=== PATIENT | male | born 1955 | race Caucasian/White ===

== ENCOUNTER → 2023-08-22 13:30 | Outpatient (BNVA) | payer MEDICARE, SELFPAY | PROVIDERS: Visit Provider Nurse Practitioner | DX: M54.2 Cervicalgia (principal); R42 Dizziness and giddiness; E11.9 Type 2 diabetes mellitus without complications; I10 Essential (primary) hypertension; E78.5 Hyperlipidemia, unspecified; Z86.73 Personal history of transient ischemic attack (TIA), and cerebral infarction without residual deficits; Z76.89 Persons encountering health services in other specified circumstances | CPT/HCPCS: 80053; 83036 ==

== ENCOUNTER 2023-09-04 06:00 | Outpatient (RCR) | payer MEDICARE, SELFPAY | END 2023-09-06 23:59 | disposition home or self-care (01) | LOC: MPT 06:00 | PROVIDERS: PCP Nurse Practitioner; Visit Provider Nurse Practitioner | DX: M54.2 Cervicalgia (principal) | CPT/HCPCS: 97110; 97140; 97162 ==

== ENCOUNTER 2023-09-07 06:00 | Outpatient (RCR) | payer MEDICARE, SELFPAY | END 2023-10-07 23:59 | disposition home or self-care (01) | LOC: MPT 06:00 | PROVIDERS: PCP Nurse Practitioner; Visit Provider Nurse Practitioner | DX: M54.2 Cervicalgia (principal) | CPT/HCPCS: 97032; 97110; 97140; G0283 ==

== ENCOUNTER 2023-10-08 06:00 | Outpatient (RCR) | payer MEDICARE, SELFPAY | END 2023-10-26 23:59 | disposition home or self-care (01) | LOC: MPT 06:00 | PROVIDERS: PCP Nurse Practitioner; Visit Provider Nurse Practitioner | DX: M54.2 Cervicalgia (principal) | CPT/HCPCS: 97110; 97140; G0283 ==

== ENCOUNTER → 2024-05-21 14:26 | Outpatient (BNVA) | payer MEDICARE, SELFPAY | PROVIDERS: PCP Nurse Practitioner; Visit Provider Nurse Practitioner | DX: E11.9 Type 2 diabetes mellitus without complications (principal); I10 Essential (primary) hypertension; E78.5 Hyperlipidemia, unspecified | CPT/HCPCS: 80053; 80061; 83036; 85025 ==

== ENCOUNTER → 2024-08-20 14:18 | Outpatient (BNVA) | payer MEDICARE, SELFPAY | PROVIDERS: PCP Nurse Practitioner; Visit Provider Nurse Practitioner | DX: E78.5 Hyperlipidemia, unspecified (principal); E11.9 Type 2 diabetes mellitus without complications | CPT/HCPCS: 80061; 83036 ==

== ENCOUNTER 2024-09-06 05:00 | Outpatient (RCR) | payer MEDICARE, SELFPAY | END 2024-10-06 23:59 | disposition home or self-care (01) | LOC: MPT 05:00 | PROVIDERS: Visit Provider Nurse Practitioner | DX: M54.2 Cervicalgia (principal) | CPT/HCPCS: 97110; 97162 ==

== ENCOUNTER 2024-10-07 06:30 | Outpatient (RCR) | payer MEDICARE, SELFPAY | END 2024-11-05 23:59 | disposition home or self-care (01) | LOC: MPT 06:30 | PROVIDERS: Visit Provider Nurse Practitioner | DX: M54.2 Cervicalgia (principal) | CPT/HCPCS: 97110; 97140; G0283 ==